=== PATIENT | female | born 2000 | race Caucasian/White ===

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

== ENCOUNTER 2019-04-06 13:52 | Emergency (ER) | payer MEDICAID ==
[~2019-04-06] VITALS: Ht 157.5 cm; Wt 55.0 kg
[2019-04-06 13:57] VITALS: BP 117/72
--- NOTE | 2019-04-06 14:55 | NUR ---
PT HIT FOOT THAT HAS PREVIOUSLY HAD SURGERY. PAIN AND SWELLING
--- NOTE | 2019-04-06 15:29 | NUR ---
SPLINT APPLIED BY TECH. PT AMBULATED TO DISCHARGE WINDOW, STEADY GAIT
== END 2019-04-06 15:31 | disposition home or self-care (01) ==
LOC: ED 15:25
DX: S90.02XA Contusion of left ankle, initial encounter (principal); W22.8XXA Striking against or struck by other objects, initial encounter; Y93.89 Activity, other specified; Y92.009 Unspecified place in unspecified non-institutional (private) residence as the place of occurrence of the external cause; Y99.8 Other external cause status
CPT/HCPCS: 99283